=== PATIENT | female | born 1980 | race African-American/Black ===

== ENCOUNTER 2017-05-24 22:04 | Emergency (ER) | payer OTHER ==
[2017-05-24 22:23] VITALS: BMI 37.2
--- NOTE | 2017-05-24 22:24 | PDOC ---
History of Present Illness - General Chief Complaint: Cold Symptoms Stated Complaint: DIFFICULTY BREATHING Time Seen by Provider: 05/24/17 22:24 History Source: Patient - History of Present Illness Initial Comments: 05/25/17 02:14 36 year old female with fever,flulike symptoms and bodyaches x 1 day, and knee pain. recently took tamiflu for FLu -like symptoms. 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 Primary : Dr. Diaz ([facility]) 05/25/17 03:00 Past History - Past Medical History Allergies/Adverse Reactions: Allergies Allergy/AdvReac Type Severity Reaction Status Date / Time No Known Allergies Allergy Verified 05/24/17 22:23 COPD: No Other medical history: Sickle cell SC disease - Suicide/Smoking/Psychosocial Hx Smoking History: Never smoked Have you smoked in the past 12 months: No Information on smoking cessation initiated: No Hx Alcohol Use: No Drug/Substance Use Hx: No Substance Use Type: None Review of Systems - Review of Systems Able to Perform ROS?: Yes Is the patient limited Maori proficient: No Constitutional: Yes: Fever HEENTM: No: Symptoms Reported, See HPI, Eye Pain, Blurred Vision, Tearing, Recent change in vision, Double Vision, Cataracts, Ear Pain, Ocular Prothesis, Ear Discharge, Nose Pain, Nose Congestion, Tinnitus, Nose Bleeding, Hearing Loss , Throat Pain, Throat Swelling, Mouth Pain, Dental Problems, Difficulty Swallowing, Mouth Swelling, Other Cardiac (ROS): No: Symptoms Reported, See HPI, Chest Pain, Edema, Irregular Heart Rate, Lightheadedness, Palpitations, Syncope, Chest Tightness, Other Musculoskeletal: Yes: Other (knee pain) Integumentary: No: Symptoms Reported, See HPI, Bruising, Change in Color, Change in Hair/Nails, Dryness, Erythema, Flushing, Lesions, Lumps, Pallor, Pruritus, Rash, Sweating, Other Neurological: No: Symptoms reported, See HPI, Headache, Numbness, Paresthesia, Pre-Existing Deficit, Seizure, Tingling, Tremors, Weakness, Unsteady Gait, Ataxia, Dizziness, Other *Physical Exam - Vital Signs Last Vital Signs Temp Pulse Resp BP Pulse Ox 100 F H 100 H 18 106/61 100 05/24/17 22:17 05/24/17 22:17 05/24/17 22:17 05/24/17 22:17 05/24/17 22:17 - Physical Exam General Appearance: Yes: Appropriately Dressed Respiratory/Chest: positive: Lungs Clear, Normal Breath Sounds ED Treatment Course - LABORATORY CBC & Chemistry Diagram: 05/24/17 23:35 05/24/17 23:35 - RADIOLOGY Chest X-Ray Result: No Infiltrates (official read pending.) *DC/Admit/Observation/Transfer Diagnosis at time of Disposition: Viral syndrome, Flu-like symptoms - Discharge Dispostion Disposition: HOME - Referrals Referrals: Zeeshan Diaz [Primary Care Provider] - Call tomorrow - Patient Instructions Printed Discharge Instructions: DI for Viral Upper Respiratory Infection -- Adult Additional Instructions: drink plenty of fluids take tylenol / ibuprofen every 6 hours as needed for fever follow up with your doctor as soon as possible. return to the ER if symptoms worsen. - Post Discharge Activity Forms/Work/School Notes: Back to Work
[2017-05-24] MEDS ORDERED: SODIUM CHLORIDE 1,000 ML IV STA (22:41)
[2017-05-24] MEDS ORDERED: ACETAMINOPHEN 325 MG TABLET (FP) PO ONE (22:41)
[2017-05-24] MEDS ORDERED: METOCLOPRAMIDE HCL INJECTION 10 MG/2 ML VIAL IVPUSH ONE (22:44)
[2017-05-24] MEDS ORDERED: KETOROLAC TROMETHAMINE 30 MG/1 ML VIAL IVPUSH ONE (22:44)
[2017-05-24] MEDS ORDERED: ACETAMINOPHEN 325 MG TABLET (FP) ONE (23:07)
[2017-05-24] MEDS ORDERED: KETOROLAC TROMETHAMINE 30 MG/1 ML VIAL ONE (23:07)
[2017-05-24] MEDS ORDERED: METOCLOPRAMIDE HCL INJECTION 10 MG/2 ML VIAL ONE (23:07)
[2017-05-24 23:47] LABS: BASO % 0.6 % (0-2.0); EOS % 0.4 % (0-4.5); HEMATOCRIT 29.9 % (32.4-45.2); HEMOGLOBIN 10.1 GM/dL (10.7-15.3); MCH 26.8 pg (25.7-33.7); MCHC 33.9 g/dl (32.0-36.0); MEAN CELL VOLUME 78.9 fl (80-96); MONO % 4.5 % (3.8-10.2); NEUT % 75.5 % (42.8-82.8); PLATELET COUNT 205 K/MM3 (134-434); RBC 3.79 M/mm3 (3.60-5.2); RDW 16.4 % (11.6-15.6); WHITE BLOOD COUNT 9.1 K/mm3 (4.0-10.0)
[2017-05-24 23:59] LABS: URINE APPEARANCE CLEAR; URINE BILIRUBIN NEGATIVE (NEGATIVE); URINE BLOOD NEGATIVE (NEGATIVE); URINE COLOR COLORLESS; URINE GLUCOSE (UA) NEGATIVE (NEGATIVE); URINE KETONE NEGATIVE (NEGATIVE); URINE LEUK ESTERASE TRACE (NEGATIVE); URINE NITRITE NEGATIVE (NEGATIVE); URINE PROTEIN NEGATIVE (NEGATIVE); URINE UROBILINOGEN NEGATIVE mg/dL (0.2-1.0)
[2017-05-25 00:06] LABS: ALBUMIN 4.1 g/dl (3.4-5.0); ANION GAP 6 (8-16); BILIRUBIN,TOTAL 0.7 mg/dL (0.2-1.0); BLOOD UREA NITROGEN 11 mg/dL (7-18); CHLORIDE 109 mmol/L (98-107); CO2 27 mmol/L (21-32); CREATININE 0.7 mg/dL (0.55-1.02); GLUCOSE,RANDOM 90 mg/dL (74-106); POTASSIUM 4.1 mmol/L (3.5-5.1); SGOT/AST 13 U/L (15-37); SGPT/ALT 18 U/L (12-78); SODIUM 142 mmol/L (136-145); TOT PROT 7.2 g/dl (6.4-8.2)
[2017-05-25 00:08] LABS: ALK PHOS 72 U/L (45-117)
[2017-05-25] MEDS ORDERED: SODIUM CHLORIDE 1,000 ML IV SCH (01:45)
[2017-05-25] MEDS ORDERED: IBUPROFEN 600 MG TABLET (FP) PO ONE ×2 (02:21→02:27)
[2017-05-25 03:14] VITALS: BP 116/68; PULSE 98; TEMP 98.5
== END 2017-05-25 03:14 | disposition home or self-care (01) ==
LOC: JER 22:04
PROC: 3E0337Z Introduction of Electrolytic and Water Balance Substance into Peripheral Vein, Percutaneous Approach (ICD-10-PCS; principal; 2017-05-24)
PROC: 3E0333Z Introduction of Anti-inflammatory into Peripheral Vein, Percutaneous Approach (ICD-10-PCS; 2017-05-24)
PROC: 3E033GC Introduction of Other Therapeutic Substance into Peripheral Vein, Percutaneous Approach (ICD-10-PCS; 2017-05-24)
DX: J11.1 Influenza due to unidentified influenza virus with other respiratory manifestations (principal); D57.20 Sickle-cell/Hb-C disease without crisis
CPT/HCPCS: 36415; 71046-TC-FY; 80053; 81003; 81015; 82550; 83605; 84484; 84703; 85025; 85044; 87040; 87086; 99282-25